=== PATIENT | male | born 1975 | race Caucasian/White ===

== ENCOUNTER 2016-05-01 18:02 | Emergency (ER) | payer OTHER, MEDICAID ==
[2016-05-01 18:08] VITALS: BP 139/78; PULSE 108; RESP 18; TEMP 97.7; O2SAT 96
== END 2016-05-01 21:14 | disposition left against medical advice (07) ==
DX: Z53.21 Procedure and treatment not carried out due to patient leaving prior to being seen by health care provider (principal)

== ENCOUNTER 2016-11-05 13:13 | Inpatient (IN) | payer OTHER, MEDICAID ==
[2016-11-05] MEDS: LORazepam 1 MG TAB PO ONE (13:50)
[2016-11-05 13:53] LABS: % IMMATURE GRANULYOCYTES 0.2 % (0.0-1.1); ABSOLUTE IMMATURE GRANULOCYTES 0.02 10^3/uL (0.00-0.10); ADD DIFF? NO; ADD MORPH? NO; ADD SCAN? NO; ATYPICAL LYMPHOCYTE FLAG 10 (0-99); FRAGMENT RBC FLAG 0 (0-99); HEMATOCRIT 44.2 % (40.0-51.0); HEMOGLOBIN 15.1 g/dL (13.7-17.5); LEFT SHIFT FLG 0 (0-99); LIPEMIA HEMOLYSIS FLAG 90 (0-99); MEAN CELL HEMOGLOBIN 32.4 pg (27.9-34.1); MEAN CELL HEMOGLOBIN CONCENTR. 34.2 g/dL (32.4-36.7); MEAN CELL VOLUME 94.8 fL (81.5-99.8); MEAN PLATELET VOLUME 10.9 fL (8.7-11.7); PLATELET CLUMPS FLAG 10 (0-99); PLATELET COUNT 217 10^3/uL (150-400); RED BLOOD CELL COUNT 4.66 10^6/uL (4.40-6.38); RED CELL DISTRIBUTION WIDTH 11.7 % (11.5-15.2)
[2016-11-05 14:03] LABS: ANION GAP 12 mEq/L (8-16); CALCIUM 9.5 mg/dL (8.5-10.4); CARBON DIOXIDE 25 mEq/l (22-31); CHLORIDE 103 mEq/L (97-110); CREATININE 0.9 mg/dL (0.7-1.3); ETHANOL SERUM < 10 mg/dL (0-10); GLOMERULAR FILTRATION RATE > 60; GLUCOSE 82 mg/dL (70-100); POTASSIUM 3.5 mEq/L (3.5-5.2); SODIUM 140 mEq/L (134-144)
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
[2016-11-05] MEDS ORDERED: LORazepam 1 MG TAB ONE (14:35)
[2016-11-05] MEDS ORDERED: NICOTINE POLACRILEX 2 MG GUM B PRN (14:46)
[2016-11-05] MEDS ORDERED: LORazepam 1 MG TAB PO ONE (14:46)
[2016-11-05] MEDS ORDERED: NICOTINE 21 MG/24 HR PATCH TD ONE (14:48)
[2016-11-06] MEDS ORDERED: LORazepam 1 MG TAB PO ONE (07:25)
[2016-11-06] MEDS: NICOTINE 21 MG/24 HR PATCH TD SCH (07:40)
[2016-11-07] MEDS ORDERED: LORazepam 1 MG TAB PO ONE (09:23)
[2016-11-07] MEDS: LORazepam 1 MG TAB PO ONE (09:29)
[2016-11-07 11:11] VITALS: RESP 16
[2016-11-07] MEDS ORDERED: LORazepam 0.5 MG TAB PO PRN (11:12)
[2016-11-07] MEDS ORDERED: ACETAMINOPHEN 325 MG TAB PO PRN (11:12)
[2016-11-07] MEDS ORDERED: MAGNESIUM HYDROXIDE 30 ML UDCUP PO PRN (11:12)
[2016-11-07] MEDS ORDERED: OLANZapine DISINTEGR 10 MG TAB PO PRN (11:12)
[2016-11-07] MEDS ORDERED: MAG HYDROX/AL HYDROX/SIMETH 30 ML UDCUP PO PRN (11:12)
[2016-11-07] MEDS: NICOTINE 21 MG/24 HR PATCH TD SCH (12:02)
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
[2016-11-08 07:00] VITALS: BP 107/57; PULSE 85; TEMP 97.5; O2SAT 96
[2016-11-08] MEDS: NICOTINE 21 MG/24 HR PATCH TD SCH (11:15)
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
== END 2016-11-08 12:15 | disposition home or self-care (01) | DRG 885 ==
LOC: BBEH 11-07 10:35
PROVIDERS: ADMIT Psychiatry & Neurology Psychiatry; ATTEND Psychiatry & Neurology Psychiatry
DX: F25.0 Schizoaffective disorder, bipolar type (principal); Z59.0 Homelessness; T43.506A Underdosing of unspecified antipsychotics and neuroleptics, initial encounter; F15.90 Other stimulant use, unspecified, uncomplicated; F12.90 Cannabis use, unspecified, uncomplicated; Z87.820 Personal history of traumatic brain injury; Z72.0 Tobacco use
CPT/HCPCS: 80305; G0480